=== PATIENT | male | born 2000 | race American Indian/Alaskan Native ===

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

== ENCOUNTER 2019-01-30 03:18 | Emergency (ER) | payer SELFPAY ==
[2019-01-30 03:45] VITALS: BP 138/59
[2019-01-30] MEDS ORDERED: PERCOCET 5/325 PO STA (04:12)
--- NOTE | 2019-01-30 04:21 | Emergency Department Report ---
ED ENT HPI - General Chief complaint: Dental/Oral Stated complaint: TOOTHACHE Time Seen by Provider: 01/30/19 04:11 Source: patient Mode of arrival: Ambulatory Limitations: No Limitations - History of Present Illness Initial comments: 18-year-old Citizen Of [place] male. Medical history of dental caries resulting in pain presents to the emergency department department complaining of a flareup this evening MD complaint: tooth pain -: Gradual (over the last few hours. acute on chroniic dental pain) Location: tooth # Severity: moderate Quality: aching, constant (throbbing) Consistency: constant Improves with: none Worsens with: none Context- Dental: history of dental caries Associated Symptoms: toothache. denies: sore throat, tinnitus, hearing loss, discharge from ear - Related Data Home Medications Medication Instructions Recorded Confirmed Last Taken ALBUTEROL Inhaler (OR & NICU) 2 puff IH QID PRN 04/19/14 07/13/14 06/11/16 09:00 [Proair] Desmopressin [Ddavp] 0.2 mg PO DAILY 04/19/14 07/13/14 06/11/16 09:00 Previous Rx's Medication Instructions Recorded Last Taken Type Ibuprofen [Motrin 600 MG tab] 600 mg PO Q6HR PRN #15 tablet 07/13/14 06/07/16 09:00 Rx Acetaminophen/Codeine [Tylenol #3] 1 tab PO Q6H PRN #10 tab 10/05/14 06/07/16 09:00 Rx HYDROcodone/APAP 5-325 [[place] 1 each PO Q6H PRN #8 tablet 08/09/16 Unknown Rx 5-325 mg TAB] Amoxicillin [Amoxicillin TAB] 875 mg PO BID #20 tablet 01/30/19 Unknown Rx Chlorhexidine Mouthwash [Peridex] 15 ml MM BID #473 bottle 01/30/19 Unknown Rx Ketorolac [Toradol] 10 mg PO Q6H PRN #15 tablet 01/30/19 Unknown Rx Lidocaine Viscous 2% 5 ml MM Q3H PRN #120 udc 01/30/19 Unknown Rx Allergies Allergy/AdvReac Type Severity Reaction Status Date / Time No Known Allergies Allergy Verified 04/16/14 17:12 ED Dental HPI - General Chief complaint: Dental/Oral Stated complaint: TOOTHACHE Time Seen by Provider: 01/30/19 04:11 Source: patient Mode of arrival: Ambulatory Limitations: No Limitations - Related Data Home Medications Medication Instructions Recorded Confirmed Last Taken ALBUTEROL Inhaler (OR & NICU) 2 puff IH QID PRN 04/19/14 07/13/14 06/11/16 09:00 [Proair] Desmopressin [Ddavp] 0.2 mg PO DAILY 04/19/14 07/13/14 06/11/16 09:00 Previous Rx's Medication Instructions Recorded Last Taken Type Ibuprofen [Motrin 600 MG tab] 600 mg PO Q6HR PRN #15 tablet 07/13/14 06/07/16 09:00 Rx Acetaminophen/Codeine [Tylenol #3] 1 tab PO Q6H PRN #10 tab 10/05/14 06/07/16 09:00 Rx HYDROcodone/APAP 5-325 [[place] 1 each PO Q6H PRN #8 tablet 08/09/16 Unknown Rx 5-325 mg TAB] Amoxicillin [Amoxicillin TAB] 875 mg PO BID #20 tablet 01/30/19 Unknown Rx Chlorhexidine Mouthwash [Peridex] 15 ml MM BID #473 bottle 01/30/19 Unknown Rx Ketorolac [Toradol] 10 mg PO Q6H PRN #15 tablet 01/30/19 Unknown Rx Lidocaine Viscous 2% 5 ml MM Q3H PRN #120 udc 01/30/19 Unknown Rx Allergies Allergy/AdvReac Type Severity Reaction Status Date / Time No Known Allergies Allergy Verified 04/16/14 17:12 ED Review of Systems ROS: Stated complaint: TOOTHACHE Other details as noted in HPI Comment: All other systems reviewed and negative ED Past Medical Hx - Past Medical History Previous Medical History?: Yes Hx GERD: Yes Hx Arthritis: Yes (POLYARTHRITIS) Hx Asthma: Yes Additional medical history: scoliosis. Irritable bowel syndrome - Surgical History Past Surgical History?: Yes Additional Surgical History: left arm (pins) - Social History Smoking Status: Never Smoker Substance Use Type: None - Medications Home Medications: Home Medications Medication Instructions Recorded Confirmed Last Taken Type ALBUTEROL Inhaler (OR & NICU) 2 puff IH QID PRN 04/19/14 07/13/14 06/11/16 09:00 History [Proair] Desmopressin [Ddavp] 0.2 mg PO DAILY 04/19/14 07/13/14 06/11/16 09:00 History Ibuprofen [Motrin 600 MG tab] 600 mg PO Q6HR PRN #15 tablet 07/13/14 06/07/16 09:00 Rx Acetaminophen/Codeine [Tylenol #3] 1 tab PO Q6H PRN #10 tab 10/05/14 06/07/16 09:00 Rx HYDROcodone/APAP 5-325 [[place] 1 each PO Q6H PRN #8 tablet 08/09/16 Unknown Rx 5-325 mg TAB] Amoxicillin [Amoxicillin TAB] 875 mg PO BID #20 tablet 01/30/19 Unknown Rx Chlorhexidine Mouthwash [Peridex] 15 ml MM BID #473 bottle 01/30/19 Unknown Rx Ketorolac [Toradol] 10 mg PO Q6H PRN #15 tablet 01/30/19 Unknown Rx Lidocaine Viscous 2% 5 ml MM Q3H PRN #120 udc 01/30/19 Unknown Rx ED Physical Exam - General Limitations: No Limitations General appearance: alert, in no apparent distress - Head Head exam: Present: atraumatic, normocephalic, normal inspection - Eye Eye exam: Present: normal appearance, PERRL, EOMI Pupils: Present: normal accommodation - ENT ENT exam: Present: normal exam, normal orophraynx, mucous membranes moist, TM's normal bilaterally, other (dental caries to tooth #12 and 13 with adjacent gingival tenderness, no swelling or discharge noted. Airway patent. Tongue and uvula midline. Normal voice) - Neck Neck exam: Present: normal inspection. Absent: lymphadenopathy - Respiratory Respiratory exam: Present: normal lung sounds bilaterally. Absent: respiratory distress, wheezes, rales, stridor - Cardiovascular Cardiovascular Exam: Present: regular rate, normal rhythm. Absent: systolic murmur, diastolic murmur, rubs, gallop - GI/Abdominal GI/Abdominal exam: Present: soft, normal bowel sounds - Rectal Rectal exam: Present: deferred - Extremities Exam Extremities exam: Present: normal inspection - Back Exam Back exam: Present: normal inspection - Neurological Exam Neurological exam: Present: alert, oriented X3 - Psychiatric Psychiatric exam: Present: normal affect, normal mood - Skin Skin exam: Present: warm, dry, intact, normal color. Absent: rash ED Course Vital Signs 01/30/19 03:33 Temperature 98.8 F Pulse Rate 73 Respiratory 16 Rate Blood Pressure 138/59 O2 Sat by Pulse 98 Oximetry ED Medical Decision Making - Medical Decision Making 18-year-old -Citizen Of [place] male with dental caries and dental erosion res ulting in pain no acute obstructive processes about the need to follow-up with the dentist for filling better management of his dentition Critical care attestation.: If time is entered above; I have spent that time in minutes in the direct care of this critically ill patient, excluding procedure time. ED Disposition Clinical Impression: Dentalgia, Dental caries Disposition: TO HOME OR SELFCARE Is pt being admited?: No Does the pt Need Aspirin: No Condition: Stable Instructions: Toothache (ED), Acute dental trauma (ED), Dental Caries (ED) Prescriptions: Amoxicillin [Amoxicillin TAB] 875 mg PO BID #20 tablet Lidocaine Viscous 2% 5 ml MM Q3H PRN #120 udc PRN Reason: Pain, Moderate (4-6) Chlorhexidine Mouthwash [Peridex] 15 ml MM BID #473 bottle Ketorolac [Toradol] 10 mg PO Q6H PRN #15 tablet PRN Reason: Pain Referrals: [facility] [Outside] - 3-5 Days
== END 2019-01-30 05:30 | disposition home or self-care (01) ==
LOC: ED 03:18
DX: K02.9 Dental caries, unspecified (principal); K21.9 Gastro-esophageal reflux disease without esophagitis; M19.90 Unspecified osteoarthritis, unspecified site; J45.909 Unspecified asthma, uncomplicated
CPT/HCPCS: 99282

== ENCOUNTER 2019-10-30 18:09 | Emergency (ER) | payer SELFPAY ==
--- NOTE | 2019-10-30 21:00 | Emergency Department Report ---
ED Abdominal Pain HPI - General Chief Complaint: Abdominal Pain Stated Complaint: HEMRROIDS Time Seen by Provider: 10/30/19 20:13 Source: patient Mode of arrival: Ambulatory Limitations: No Limitations - History of Present Illness Initial Comments: 19-year-old male with a past medical history of previous hemorrhoidectomy, irritable bowel syndrome, asthma, and GERD presents to the hospital with possible hemorrhoid pain x2 days. Patient has had discomfort in the anal/rectal area for the past 2 days with defecation. Denies hematochezia, melena, or si gnificant abdominal pain. Patient is straining with bowel movements. Concerned due to previous history of hemorrhoids. Patient denies fever, or engaging in receptive anal intercourse. - Related Data Home Medications Medication Instructions Recorded Confirmed Last Taken Albuterol INH(or & Nicu Only) 2 puff IH QID PRN 04/19/14 07/13/14 06/11/16 09:00 [Proair] Desmopressin [Ddavp] 0.2 mg PO DAILY 04/19/14 07/13/14 06/11/16 09:00 Previous Rx's Medication Instructions Recorded Last Taken Type Ibuprofen [Motrin 600 MG tab] 600 mg PO Q6HR PRN #15 tablet 07/13/14 06/07/16 09:00 Rx Acetaminophen/Codeine [Tylenol #3] 1 tab PO Q6H PRN #10 tab 10/05/14 06/07/16 09:00 Rx HYDROcodone/APAP 5-325 [[place] 1 each PO Q6H PRN #8 tablet 08/09/16 Unknown Rx 5-325 mg TAB] Amoxicillin [Amoxicillin TAB] 875 mg PO BID #20 tablet 01/30/19 Unknown Rx Chlorhexidine Mouthwash [Peridex] 15 ml MM BID #473 bottle 01/30/19 Unknown Rx Ketorolac [Toradol] 10 mg PO Q6H PRN #15 tablet 01/30/19 Unknown Rx Lidocaine Viscous 2% 5 ml MM Q3H PRN #120 udc 01/30/19 Unknown Rx Docusate Sodium [Colace] 100 mg PO BID PRN #20 capsule 10/30/19 Unknown Rx Phenylephrine HCl/[place] Butter 1 each RC 4XD PRN #20 supp.rect 10/30/19 Unknown Rx [Preparation H Suppository] Allergies Allergy/AdvReac Type Severity Reaction Status Date / Time No Known Allergies Allergy Verified 04/16/14 17:12 ED Review of Systems ROS: Stated complaint: HEMRROIDS Other details as noted in HPI Comment: All other systems reviewed and negative ED Past Medical Hx - Past Medical History Previous Medical History?: Yes Hx GERD: Yes Hx Arthritis: Yes (POLYARTHRITIS) Hx Asthma: Yes Additional medical history: scoliosis. Irritable bowel syndrome - Surgical History Past Surgical History?: Yes Additional Surgical History: left arm (pins), Hemorrhoidectomy - Social History Smoking Status: Current Every Day Smoker - Medications Home Medications: Home Medications Medication Instructions Recorded Confirmed Last Taken Type Albuterol INH(or & [place] Only) 2 puff IH QID PRN 04/19/14 07/13/14 06/11/16 09:00 History [Proair] Desmopressin [Ddavp] 0.2 mg PO DAILY 04/19/14 07/13/14 06/11/16 09:00 History Ibuprofen [Motrin 600 MG tab] 600 mg PO Q6HR PRN #15 tablet 07/13/14 06/07/16 09:00 Rx Acetaminophen/Codeine [Tylenol #3] 1 tab PO Q6H PRN #10 tab 10/05/14 06/07/16 09:00 Rx HYDROcodone/APAP 5-325 [[place] 1 each PO Q6H PRN #8 tablet 08/09/16 Unknown Rx 5-325 mg TAB] Amoxicillin [Amoxicillin TAB] 875 mg PO BID #20 tablet 01/30/19 Unknown Rx Chlorhexidine Mouthwash [Peridex] 15 ml MM BID #473 bottle 01/30/19 Unknown Rx Ketorolac [Toradol] 10 mg PO Q6H PRN #15 tablet 01/30/19 Unknown Rx Lidocaine Viscous 2% 5 ml MM Q3H PRN #120 udc 01/30/19 Unknown Rx Docusate Sodium [Colace] 100 mg PO BID PRN #20 capsule 10/30/19 Unknown Rx Phenylephrine HCl/[place] Butter 1 each RC 4XD PRN #20 supp.rect 10/30/19 Unknown Rx [Preparation H Suppository] ED Physical Exam - General Limitations: No Limitations - Other Other exam information: General: No acute distress Head: Atraumatic Eyes: normal appearance ENT: Moist mucous membranes Neck: Normal appearance, no midline tenderness Chest: Clear to auscultation bilaterally CV: Regular rate and rhythm Abdomen: Soft, normal bowel sounds, nontender, nondistended, no rebound or guarding Rectal: No external hemorrhoids noted, no gross blood Back: Normal inspection Extremity: Normal inspection, full range of motion Neuro: Alert O x 3, no facial asymmetry, speech clear, no gross motor sensory deficit Psych: Appropriate behavior Skin: No rash ED Course Vital Signs 10/30/19 18:19 Temperature 98.9 F Pulse Rate 80 Respiratory 20 Rate Blood Pressure 110/80 O2 Sat by Pulse 97 Oximetry ED Medical Decision Making - Medical Decision Making Patient has no significant external hemorrhoids. Does not endorse any rectal bleeding. Abdomen is benign. No reports of fever and normal vital signs. Patient will be discharged home with rectal suppositories as needed and Colace and PMD follow-up - Differential Diagnosis Hemorrhoids, anal fissure, rectal/anal abscess,, constipation Critical Care Time: No Critical care attestation.: If time is entered above; I have spent that time in minutes in the direct care of this critically ill patient, excluding procedure time. ED Disposition Clinical Impression: Rectal discomfort, History of hemorrhoids Disposition: TO HOME OR SELFCARE Is pt being admited?: No Does the pt Need Aspirin: No Condition: Stable Instructions: Constipation (ED), Hemorrhoids (ED) Additional Instructions: Take the medication as prescribed. Follow-up with your doctor or doctor/clinic provided. Return if symptoms worsen as indicated by your discharge instructions. Prescriptions: Docusate Sodium [Colace] 100 mg PO BID PRN #20 capsule PRN Reason: Constipation Phenylephrine HCl/[place]ra Butter [Preparation H Suppository] 1 each RC 4XD PRN #20 supp.rect PRN Reason: Hemorrhoids Referrals: JEAN CARLOS BETANCOURT MD [Staff Physician] - 3-5 Days LILIANE LOPEZ MD [Staff Physician] - 3-5 Days [facility] [Provider Group] - 3-5 Days Time of Disposition: 21:02
[2019-10-30 21:29] VITALS: BP 100/43
== END 2019-10-30 21:26 | disposition home or self-care (01) ==
LOC: ED 18:09
DX: K62.89 Other specified diseases of anus and rectum (principal); K64.8 Other hemorrhoids; K21.9 Gastro-esophageal reflux disease without esophagitis; J45.909 Unspecified asthma, uncomplicated; G43.909 Migraine, unspecified, not intractable, without status migrainosus; M19.90 Unspecified osteoarthritis, unspecified site; F17.200 Nicotine dependence, unspecified, uncomplicated; Z79.899 Other long term (current) drug therapy
CPT/HCPCS: 99282